=== PATIENT | male | born 1990 | race Caucasian/White ===

== ENCOUNTER 2023-02-13 10:17 | Emergency (ER) | payer MEDICAID, OTHER | END 2023-02-13 11:23 | disposition home or self-care (01) | LOC: MW.ED 10:17 | DX: M84.48XA Pathological fracture, other site, initial encounter for fracture (principal); K04.7 Periapical abscess without sinus; Z79.899 Other long term (current) drug therapy | CPT/HCPCS: 99283 ==

== ENCOUNTER 2023-02-18 12:51 | Emergency (ER) | payer MEDICAID ==
[2023-02-18] MEDS ORDERED: Bupivacaine 0.5% 10 ML SDV INJECT STA (13:10)
[2023-02-18] MEDS ORDERED: Lidocaine 1% PF 2 ML SDV INJECT STA (13:10)
== END 2023-02-18 14:00 | disposition home or self-care (01) ==
LOC: MW.ED 12:51
DX: K05.30 Chronic periodontitis, unspecified (principal)
CPT/HCPCS: 64400; 99282; J3490; 99283

== ENCOUNTER 2023-03-23 16:29 | Emergency (ER) | payer MEDICAID | END 2023-03-23 17:17 | disposition home or self-care (01) | LOC: MW.ED 16:29 | DX: K04.7 Periapical abscess without sinus (principal) | CPT/HCPCS: 99283 ==

== ENCOUNTER 2023-06-11 14:36 | Emergency (ER) | payer MEDICAID, OTHER ==
[2023-06-11] MEDS: Lidocaine 2% Viscous Solution 15 ML UD PO ONE (15:26)
[2023-06-11] MEDS: Benzocaine 20% Topical Spray UD MUCMEM ONE (15:26)
== END 2023-06-11 16:19 | disposition home or self-care (01) ==
LOC: MW.ED 14:36
DX: K04.7 Periapical abscess without sinus (principal)
CPT/HCPCS: 99283; A9270

== ENCOUNTER 2023-10-22 21:55 | Emergency (ER) | payer MEDICAID, OTHER ==
[2023-10-22] MEDS: Polymyxin B/Trimethoprim 10 ML Bottle EYERT ONE (22:34)
[2023-10-22] MEDS: Ibuprofen 600 MG Tab PO ONE (22:39)
[2023-10-22] MEDS: Diphtheria,Pertussis(Acell),Tetanus Vaccine 0.5 ML Syringe IM ONE (22:40)
[2023-10-22] MEDS: Erythromycin Base 0.5% Ophth Oint 1 GM Tube EYEBOTH ONE (22:53)
== END 2023-10-22 23:02 | disposition home or self-care (01) ==
LOC: MW.ED 21:55
DX: T15.01XA Foreign body in cornea, right eye, initial encounter (principal); F17.210 Nicotine dependence, cigarettes, uncomplicated; Z79.899 Other long term (current) drug therapy; Z86.16 Personal history of COVID-19; Z75.8 Other problems related to medical facilities and other health care; W44.8XXA Other foreign body entering into or through a natural orifice, initial encounter
CPT/HCPCS: 90471; 90715; 99283; A9270

== ENCOUNTER 2024-05-17 10:37 | Emergency (ER) | payer MEDICAID, OTHER ==
[2024-05-17] MEDS: Lidocaine 2% Viscous Solution 15 ML UD PO ONE (12:07)
[2024-05-17] MEDS: Benzocaine 20% Topical Spray UD MUCMEM ONE (12:07)
== END 2024-05-17 12:18 | disposition home or self-care (01) ==
LOC: MW.ED 10:37
DX: K04.7 Periapical abscess without sinus (principal); Z79.899 Other long term (current) drug therapy; Z86.16 Personal history of COVID-19; Z75.8 Other problems related to medical facilities and other health care
CPT/HCPCS: 99282; A9270

== ENCOUNTER 2024-11-14 13:36 | Emergency (ER) | payer MEDICAID | END 2024-11-14 15:48 | disposition home or self-care (01) | LOC: MW.ED 13:36 | DX: S05.02XA Injury of conjunctiva and corneal abrasion without foreign body, left eye, initial encounter (principal); H53.142 Visual discomfort, left eye; F17.210 Nicotine dependence, cigarettes, uncomplicated; Z79.899 Other long term (current) drug therapy; X58.XXXA Exposure to other specified factors, initial encounter | CPT/HCPCS: 99283; J3490 ==

== ENCOUNTER 2025-01-21 12:09 | Emergency (ER) | payer MEDICAID ==
[2025-01-21] MEDS: Ketorolac 30 MG/ML SDV IM ONE (12:38)
[2025-01-21] MEDS: Lidocaine 1% PF 2 ML SDV INJECT ONE (12:38)
== END 2025-01-21 13:32 | disposition home or self-care (01) ==
LOC: MW.ED 12:09
DX: K02.9 Dental caries, unspecified (principal); K05.20 Aggressive periodontitis, unspecified
CPT/HCPCS: 41800; 96372; 99282; J1885; J2003